=== PATIENT | female | born 1945 | race Caucasian/White ===

== ENCOUNTER 2016-10-03 14:53 | Emergency (ER) | payer BC, MEDICARE, OTHER ==
[~2016-10-03] VITALS: Ht 154.9 cm; Wt 66.2 kg
[2016-10-03 14:55] VITALS: BP_SYST 153
[2016-10-03 15:27] VITALS: BP_SYST 131
== END 2016-10-03 15:27 | disposition home or self-care (01) ==
LOC: SED 14:53
DX: J01.90 Acute sinusitis, unspecified (principal); H61.21 Impacted cerumen, right ear; H10.9 Unspecified conjunctivitis; K21.9 Gastro-esophageal reflux disease without esophagitis; I10 Essential (primary) hypertension; E78.5 Hyperlipidemia, unspecified; Z90.710 Acquired absence of both cervix and uterus
CPT/HCPCS: 99283

== ENCOUNTER 2017-01-25 07:07 | Emergency (ER) | payer OTHER ==
[~2017-01-25] VITALS: Ht 154.9 cm; Wt 67.6 kg
[2017-01-25 07:07] VITALS: BP_SYST 153
[2017-01-25 07:40] VITALS: BP_SYST 153
== END 2017-01-25 07:40 | disposition home or self-care (01) ==
LOC: SED 07:07
DX: R21 Rash and other nonspecific skin eruption (principal); K21.9 Gastro-esophageal reflux disease without esophagitis; I10 Essential (primary) hypertension; E78.5 Hyperlipidemia, unspecified; Z96.659 Presence of unspecified artificial knee joint
CPT/HCPCS: 99283